=== PATIENT | female | born 1960 | race Caucasian/White ===

== ENCOUNTER 2022-10-06 09:06 | Day surgery (SDC) | payer OTHER ==
[2022-10-03 15:12] VITALS: BMI 22.8
[2022-10-06 10:30] VITALS: TEMP 97.4
[2022-10-06 11:04] VITALS: BP 110/68; PULSE 72; RESP 16
== END 2022-10-06 11:00 | disposition home or self-care (01) ==
LOC: FASU-ENDO 09:06
PROVIDERS: ATTEND Internal Medicine Gastroenterology
PROC: 0DJD8ZZ Inspection of Lower Intestinal Tract, Via Natural or Artificial Opening Endoscopic (ICD-10-PCS; principal; 2022-10-06 10:01)
DX: Z12.11 Encounter for screening for malignant neoplasm of colon (principal); K64.1 Second degree hemorrhoids

== ENCOUNTER 2024-10-17 07:41 | Day surgery (SDC) | payer OTHER ==
[2024-10-15 13:30] VITALS: BMI 22.6
[2024-10-17 09:58] VITALS: PULSE 62; RESP 16; TEMP 97.7
[2024-10-17 10:31] VITALS: BP 113/57
== END 2024-10-17 10:35 | disposition home or self-care (01) ==
LOC: FASU-ENDO 07:41
PROVIDERS: ATTEND Internal Medicine Gastroenterology
PROC: 0DB68ZX Excision of Stomach, Via Natural or Artificial Opening Endoscopic, Diagnostic (ICD-10-PCS; 2024-10-17)
PROC: 0DB48ZX Excision of Esophagogastric Junction, Via Natural or Artificial Opening Endoscopic, Diagnostic (ICD-10-PCS; 2024-10-17)
PROC: 0DB98ZX Excision of Duodenum, Via Natural or Artificial Opening Endoscopic, Diagnostic (ICD-10-PCS; principal; 2024-10-17 09:39)
DX: K29.50 Unspecified chronic gastritis without bleeding (principal); K20.90 Esophagitis, unspecified without bleeding; R10.13 Epigastric pain
CPT/HCPCS: 88305-TC; 88342-TC